=== PATIENT | male | born 1975 | race Caucasian/White ===

== ENCOUNTER 2017-07-03 10:27 | Emergency (ER) | payer OTHER ==
[~2017-07-03] VITALS: Ht 177.8 cm; Wt 87.5 kg
[2017-07-03] MEDS ORDERED: ONDANSETRON HCL INJ 2 MG/ML VIAL IV STA (10:35)
[2017-07-03] MEDS ORDERED: SODIUM CHLORIDE 0.9% 1000ML 1,000 ML IV SCH (10:45)
== END 2017-07-03 11:52 | disposition home or self-care (01) ==
LOC: FSED 10:27
CPT/HCPCS: 99283; J2405; J7030

== ENCOUNTER 2021-09-23 09:54 | Emergency (ER) | payer OTHER ==
[~2021-09-23] VITALS: Ht 180.3 cm; Wt 95.4 kg
== END 2021-09-23 10:23 | disposition home or self-care (01) ==
LOC: FSED 10:13
DX: T23.271A Burn of second degree of right wrist, initial encounter (principal); X19.XXXA Contact with other heat and hot substances, initial encounter; Y92.89 Other specified places as the place of occurrence of the external cause
CPT/HCPCS: 99282